=== PATIENT | male | born 1960 | race African-American/Black ===

== ENCOUNTER 2022-01-09 09:15 | Inpatient (IN) | payer OTHER ==
[2022-01-14] MEDS ORDERED: cefOXitin 2 GM VIAL ONE (11:37)
[2022-01-14] MEDS ORDERED: Sodium Chloride 0.9% 100 ML ONE (11:37)
[2022-01-14] MEDS ORDERED: fentaNYL Citrate/PF 100 MCG/2 ML SYRINGE ONE (13:39)
[2022-01-14] MEDS ORDERED: SUGAMMADEX SODIUM 200 MG/2 ML VIAL ONE (13:39)
[2022-01-14] MEDS ORDERED: Dexamethasone 20 MG/5 ML VIAL ONE (13:53)
[2022-01-14] MEDS ORDERED: Glycopyrrolate 0.2 MG/ML 5 ML SYRINGE ONE (13:53)
[2022-01-14] MEDS ORDERED: Rocuronium Bromide 10 MG/ML (10ML VIAL) ONE (13:53)
[2022-01-14] MEDS ORDERED: PROPOFOL 200 MG/20 ML VIAL ONE (13:53)
[2022-01-14] MEDS ORDERED: ePHEDrine 50 MG/ML VIAL ONE (13:53)
[2022-01-14] MEDS ORDERED: Phenylephrine 10 MG/ML VIAL ONE (13:53)
[2022-01-14] MEDS ORDERED: Lidocaine 1% PF 5 ML VIAL ONE (13:53)
[2022-01-14] MEDS ORDERED: Ondansetron PF 4 MG/2 ML Vial ONE (13:53)
[2022-01-14] MEDS ORDERED: Ondansetron PF 4 MG/2 ML Vial IVP PRN (15:44)
[2022-01-14] MEDS ORDERED: HumaLOG 300 UNITS/3 ML VIAL SC PRN (15:44)
[2022-01-14] MEDS ORDERED: Promethazine HCl 25 MG/ML VIAL IM PRN ×2 (15:44→15:58)
[2022-01-14] MEDS ORDERED: Promethazine HCl 25 MG/ML VIAL IVPB PRN (15:58)
[2022-01-14] MEDS ORDERED: HYDROmorphone 2 MG/ML VIAL SLOW IVP PRN (15:58)
[2022-01-14] MEDS ORDERED: Ondansetron HCl/PF 4 MG/2 ML Vial IVP PRN (15:58)
[2022-01-14] MEDS ORDERED: Ketorolac Tromethamine 30 MG/ML VIAL IVP PRN (15:58)
[2022-01-14] MEDS ORDERED: Naloxone HCl 0.4 mg/ml Vial IV PRN (15:59)
[2022-01-14] MEDS ORDERED: Fentanyl 100 MCG/2 ML VIAL ONE ×2 (15:59→16:39)
[2022-01-14] MEDS ORDERED: diphenhydrAMINE 50 MG/ML VIAL IVP PRN (15:59)
[2022-01-14] MEDS ORDERED: diphenhydrAMINE 25 MG CAP PO PRN (15:59)
[2022-01-14] MEDS ORDERED: diphenhydrAMINE 50 MG/ML VIAL IM PRN (15:59)
[2022-01-14] MEDS ORDERED: Zolpidem Tartrate 5 MG TAB PO PRN (15:59)
[2022-01-14] MEDS ORDERED: Morphine CADD 1 MG/ML CADD IVPB PRN (15:59)
[2022-01-14] MEDS ORDERED: Communication Order-Pharmacy FS PRN (16:00)
[2022-01-14] MEDS ORDERED: Ondansetron HCl/PF 4 MG/2 ML Vial IVP SCH (16:15)
[2022-01-14] MEDS: Sodium Chloride 0.9% 1,000 ML IV SCH (19:00)
[2022-01-14] MEDS ORDERED: cefOXitin 2 GM in Sodium Chloride 0.9% 100 ML IVPB SCH (19:00)
[2022-01-14] MEDS: Famotidine/PF 20 mg/2ml Vial SLOW IVP SCH (21:25)
[2022-01-14] MEDS: Famotidine 20 MG TAB PO SCH (21:30)
[2022-01-14] MEDS: cefOXitin 2 GM in Sodium Chloride 0.9% 100 ML IVPB SCH (21:42)
[2022-01-15] MEDS: Sodium Chloride 0.9% 1,000 ML IV SCH ×4 (02:06→20:13)
[2022-01-15] MEDS: cefOXitin 2 GM in Sodium Chloride 0.9% 100 ML IVPB SCH (05:04)
[2022-01-15 06:00] LABS: Anion Gap 12 mmol/L (10-20); BUN (Urea Nitrogen) 10 mg/dL (8.4-25.7); Calc. Creatinine Clearance 166 mL/min (70-130); Calcium 8.6 mg/dL (7.8-10.44); Carbon Dioxide 24 mmol/L (23-31); Chloride 105 mmol/L (98-107); Estimated GFR 104; Glucose 125 mg/dL (80-115); Potassium 4.2 mmol/L (3.5-5.1); Sodium 137 mmol/L (136-145)
[2022-01-15 06:24] LABS: Band 25 % (5-11); Hemoglobin 13.9 g/dL (14.0-18.0); Lymphocytes 7 % (21-51); MDiff Complete? YES; Mean Corpuscular HGB CONC 30.8 g/dL (32.0-36.0); Mean Corpuscular Hemoglobin 28.2 pg (27.0-31.0); Mean Corpuscular Volume 91.8 fL (78.0-98.0); Mean Platelet Volume 8.4 fL (7.4-10.4); Monocytes 7 % (0-10); Neutrophil 61 % (42-75); Platelet Count 302 thou/uL (130-400); Platelet Morphology Comment Appears Adequate; RBC Morphology Normal; Red Blood Cell (RBC) Count 4.93 mill/uL (4.70-6.10); White Blood Cell (WBC) Count 21.3 thou/uL (4.8-10.8)
[2022-01-15] MEDS: Famotidine 20 MG TAB PO SCH ×2 (08:24→20:13)
[2022-01-15] MEDS: Enoxaparin Sodium 40 MG/0.4 ML SYRINGE SC SCH (08:24)
[2022-01-15] MEDS: Famotidine/PF 20 mg/2ml Vial SLOW IVP SCH ×2 (08:24→20:13)
[2022-01-15] MEDS: hydrALAZINE 20 MG/ML VIAL SLOW IVP PRN (20:19)
[2022-01-16] MEDS: Enoxaparin Sodium 40 MG/0.4 ML SYRINGE SC SCH (08:52)
[2022-01-16] MEDS: Famotidine 20 MG TAB PO SCH ×2 (08:54→20:33)
[2022-01-16] MEDS: Famotidine/PF 20 mg/2ml Vial SLOW IVP SCH ×2 (08:57→19:33)
[2022-01-16] MEDS: Sodium Chloride 0.9% 1,000 ML IV SCH (08:58)
[2022-01-16] MEDS ORDERED: Fentanyl 100 MCG/2 ML VIAL SLOW IVP PRN (11:21)
[2022-01-16] MEDS: hydrALAZINE 20 MG/ML VIAL SLOW IVP PRN ×2 (12:06→16:00)
[2022-01-17] MEDS: HYDROcodone/Acetaminophen 7.5/325 mg Tablet PO PRN ×2 (00:38→17:30)
[2022-01-17] MEDS: Enoxaparin Sodium 40 MG/0.4 ML SYRINGE SC SCH (08:27)
[2022-01-17] MEDS: Famotidine/PF 20 mg/2ml Vial SLOW IVP SCH ×2 (08:58→21:04)
[2022-01-17] MEDS: D5 1/2 NS w/20 mEq KCL 1,000 ML IV SCH ×2 (09:04→23:27)
[2022-01-17] MEDS: Famotidine 20 MG TAB PO SCH ×2 (09:18→21:04)
[2022-01-17 15:50] VITALS: BMI 35.5
[2022-01-17] MEDS: Ondansetron PF 4 MG/2 ML Vial IVP PRN (17:32)
[2022-01-17] MEDS: Promethazine HCl 25 MG/ML VIAL IM PRN (21:04)
[2022-01-18] MEDS: Famotidine/PF 20 mg/2ml Vial SLOW IVP SCH ×2 (10:26→20:49)
[2022-01-18] MEDS: Enoxaparin Sodium 40 MG/0.4 ML SYRINGE SC SCH (10:26)
[2022-01-18] MEDS: Famotidine 20 MG TAB PO SCH ×2 (10:27→20:43)
[2022-01-19] MEDS: D5 1/2 NS w/20 mEq KCL 1,000 ML IV SCH ×4 (00:36→20:34)
[2022-01-19] MEDS: Ondansetron PF 4 MG/2 ML Vial IVP PRN ×2 (05:10→20:35)
[2022-01-19 06:10] LABS: ALT (SGPT) 15 U/L (8-55); AST (SGOT) 13 U/L (5-34); Albumin 3.7 g/dL (3.4-4.8); Alkaline Phosphatase 63 U/L (40-110); Anion Gap 19 mmol/L (10-20); BUN (Urea Nitrogen) 24 mg/dL (8.4-25.7); Bilirubin, Total 1.2 mg/dL (0.2-1.2); Calc. Creatinine Clearance 128 mL/min (70-130); Calcium 9.4 mg/dL (7.8-10.44); Carbon Dioxide 29 mmol/L (23-31); Chloride 96 mmol/L (98-107); Estimated GFR 93; Globulin 3.7 g/dL (2.4-3.5); Glucose 159 mg/dL (80-115); Phosphorus 3.7 mg/dL (2.3-4.7); Potassium 3.5 mmol/L (3.5-5.1); Protein, Total 7.4 g/dL (5.8-8.1); Sodium 140 mmol/L (136-145)
[2022-01-19 06:15] LABS: Band 11 % (5-11); Hemoglobin 15.1 g/dL (14.0-18.0); Lymphocytes 9 % (21-51); MDiff Complete? YES; Mean Corpuscular HGB CONC 32.8 g/dL (32.0-36.0); Mean Corpuscular Hemoglobin 29.8 pg (27.0-31.0); Mean Corpuscular Volume 90.7 fL (78.0-98.0); Mean Platelet Volume 8.2 fL (7.4-10.4); Monocytes 25 % (0-10); Neutrophil 55 % (42-75); Platelet Count 366 thou/uL (130-400); Platelet Morphology Comment Appears Adequate; RBC Morphology Normal; Red Blood Cell (RBC) Count 5.05 mill/uL (4.70-6.10); White Blood Cell (WBC) Count 7.5 thou/uL (4.8-10.8)
[2022-01-19] MEDS: Enoxaparin Sodium 40 MG/0.4 ML SYRINGE SC SCH (08:20)
[2022-01-19] MEDS: Famotidine/PF 20 mg/2ml Vial SLOW IVP SCH ×2 (08:20→20:34)
[2022-01-19] MEDS: Famotidine 20 MG TAB PO SCH ×2 (08:21→21:00)
[2022-01-19] MEDS: Promethazine HCl 25 MG/ML VIAL IM PRN (22:35)
[2022-01-20] MEDS: D5 1/2 NS w/20 mEq KCL 1,000 ML IV SCH ×3 (05:34→18:02)
[2022-01-20] MEDS: Enoxaparin Sodium 40 MG/0.4 ML SYRINGE SC SCH (08:19)
[2022-01-20] MEDS: Famotidine 20 MG TAB PO SCH ×2 (08:19→19:40)
[2022-01-20] MEDS: HYDROcodone/Acetaminophen 7.5/325 mg Tablet PO PRN ×2 (08:25→16:20)
[2022-01-20] MEDS: Famotidine/PF 20 mg/2ml Vial SLOW IVP SCH ×2 (08:27→20:24)
[2022-01-21 06:00] LABS: Band 2 % (5-11); Eosinophils 12 % (0-10); Hemoglobin 12.5 g/dL (14.0-18.0); Hypochromia SLIGHT = 6-15 cells (100X) (0-5/hpf); Lymphocytes 29 % (21-51); MDiff Complete? YES; Mean Corpuscular HGB CONC 30.7 g/dL (32.0-36.0); Mean Corpuscular Volume 94.6 fL (78.0-98.0); Mean Platelet Volume 7.7 fL (7.4-10.4); Monocytes 20 % (0-10); Neutrophil 37 % (42-75); Platelet Count 362 thou/uL (130-400); Platelet Morphology Comment Appears Adequate; Polychromasia SLIGHT = 2-3 cells (100X) (0-2/hpf); White Blood Cell (WBC) Count 10.8 thou/uL (4.8-10.8)
[2022-01-21 07:45] LABS: Anion Gap 16 mmol/L (10-20); BUN (Urea Nitrogen) 14 mg/dL (8.4-25.7); Calc. Creatinine Clearance 155 mL/min (70-130); Calcium 8.8 mg/dL (7.8-10.44); Carbon Dioxide 26 mmol/L (23-31); Chloride 103 mmol/L (98-107); Estimated GFR 102; Glucose 122 mg/dL (80-115); Potassium 3.7 mmol/L (3.5-5.1); Sodium 141 mmol/L (136-145)
[2022-01-21] MEDS: Enoxaparin Sodium 40 MG/0.4 ML SYRINGE SC SCH (08:21)
[2022-01-21] MEDS: Famotidine 20 MG TAB PO SCH ×2 (08:21→20:43)
[2022-01-21] MEDS: D5 1/2 NS w/20 mEq KCL 1,000 ML IV SCH (08:22)
[2022-01-21] MEDS: Famotidine/PF 20 mg/2ml Vial SLOW IVP SCH ×2 (08:22→20:43)
[2022-01-22] MEDS: HYDROcodone/Acetaminophen 7.5/325 mg Tablet PO PRN (02:05)
[2022-01-22] MEDS: Promethazine HCl 25 MG/ML VIAL IM PRN (02:05)
[2022-01-22] MEDS: Famotidine 20 MG TAB PO SCH ×2 (08:56→21:34)
[2022-01-22] MEDS: Enoxaparin Sodium 40 MG/0.4 ML SYRINGE SC SCH (08:57)
[2022-01-22] MEDS: Famotidine/PF 20 mg/2ml Vial SLOW IVP SCH ×2 (10:09→21:34)
[2022-01-23] MEDS: hydrALAZINE 20 MG/ML VIAL SLOW IVP PRN (00:27)
[2022-01-23 06:35] VITALS: TEMP 98.3
[2022-01-23 08:20] VITALS: BP 158/80
[2022-01-23] MEDS: Enoxaparin Sodium 40 MG/0.4 ML SYRINGE SC SCH (08:32)
[2022-01-23] MEDS: Famotidine/PF 20 mg/2ml Vial SLOW IVP SCH (08:32)
[2022-01-23] MEDS: Famotidine 20 MG TAB PO SCH (08:32)
== END 2022-01-23 11:05 | disposition home or self-care (01) | DRG 330 ==
LOC: SURG A 01-14 08:16
PROVIDERS: ADMIT Surgery; ATTEND Surgery
PROC: 0DTG0ZZ Resection of Left Large Intestine, Open Approach (ICD-10-PCS; principal; 2022-01-15)
DX: C18.7 Malignant neoplasm of sigmoid colon (principal); K56.7 Ileus, unspecified; C77.2 Secondary and unspecified malignant neoplasm of intra-abdominal lymph nodes; Z20.822 Contact with and (suspected) exposure to COVID-19; E11.9 Type 2 diabetes mellitus without complications; I10 Essential (primary) hypertension; Z79.899 Other long term (current) drug therapy; Z79.84 Long term (current) use of oral hypoglycemic drugs; Z82.49 Family history of ischemic heart disease and other diseases of the circulatory system; Z83.3 Family history of diabetes mellitus; Z87.891 Personal history of nicotine dependence
CPT/HCPCS: 36415; 36416; 80048; 80053; 83735; 84100; 84134; 85025; 88305; 88309; A4649; J0360; J0694; J1100; J1650; J1815; J2370; J2405; J2550; J2704; J3010; J3480; J3490; J7050; S0028

== ENCOUNTER 2022-01-09 09:38 | Outpatient (CLI) | payer OTHER ==
[2022-01-09 11:40] LABS: #Basophils 0.1 10x3/uL (0.0-0.2); #Eosinphils 0.8 10x3/uL (0.0-0.5); #Monocytes 1.1 10x3/uL (0.0-1.1); #Neutrophils 5.5 10x3/uL (1.5-8.4); %Basophils 1.1 % (0.0-2.0); %Eosinophils 7.8 % (0.0-6.0); %Lymphocytes 28.3 % (18.0-47.0); %Monocytes 10.5 % (0.0-10.0); Hemoglobin 14.7 g/dL (13.5-17.5); Mean Corpuscular HGB CONC 31.8 g/dL (32.0-36.0); Mean Corpuscular Hemoglobin 27.5 pg (27.0-33.0); Mean Corpuscular Volume 86.5 fl (81.2-95.1); Mean Platelet Volume 10.5 fl (7.4-10.4); Platelet Count 359 10x3/uL (150-450); RBC Distribution Width 14.3 % (11.5-14.5); Red Blood Cell (RBC) Count 5.34 10x6/uL (4.32-5.72); White Blood Cell (WBC) Count 10.5 10x3/uL (3.5-10.5)
[2022-01-09 12:03] LABS: Anion Gap 16 mmol/L (10-20); BUN (Urea Nitrogen) 11 mg/dL (8.4-25.7); Calc. Creatinine Clearance 0 mL/min (70-130); Calcium 9.6 mg/dL (7.8-10.44); Carbon Dioxide 24 mmol/L (23-31); Chloride 107 mmol/L (98-107); Estimated GFR 100; Glucose 122 mg/dL (80-115); Potassium 4.6 mmol/L (3.5-5.1); Sodium 142 mmol/L (136-145)
[2022-01-09 14:07] LABS: Hemoglobin A1c 6.2 % (4.0-6.0)
== END 2022-01-09 09:39 | disposition home or self-care (01) ==
LOC: LABBT 09:38
PROVIDERS: ATTEND Surgery
DX: Z01.818 Encounter for other preprocedural examination (principal); C18.7 Malignant neoplasm of sigmoid colon; Z20.822 Contact with and (suspected) exposure to COVID-19
CPT/HCPCS: 80048; 83036; 85025; 87811; 93005; 93010

== ENCOUNTER 2022-07-24 08:48 | Outpatient (CLI) | payer OTHER ==
[2022-07-24 10:38] LABS: #Basophils 0.1 10x3/uL (0.0-0.2); #Eosinphils 0.2 10x3/uL (0.0-0.5); #Monocytes 0.9 10x3/uL (0.0-1.1); #Neutrophils 4.9 10x3/uL (1.5-8.4); %Basophils 0.8 % (0.0-2.0); %Eosinophils 2.4 % (0.0-6.0); %Monocytes 9.5 % (0.0-10.0); %Neutrophils 54.1 % (40.0-75.0); Hemoglobin 15.2 g/dL (13.5-17.5); Mean Corpuscular HGB CONC 32.2 g/dL (32.0-36.0); Mean Corpuscular Hemoglobin 28.4 pg (27.0-33.0); Mean Corpuscular Volume 88.2 fl (81.2-95.1); Mean Platelet Volume 10.9 fl (7.4-10.4); Platelet Count 344 10x3/uL (150-450); RBC Distribution Width 14.3 % (11.5-14.5); Red Blood Cell (RBC) Count 5.35 10x6/uL (4.32-5.72)
[2022-07-24 11:29] LABS: Anion Gap 16 mmol/L (10-20); BUN (Urea Nitrogen) 11 mg/dL (8.4-25.7); Calc. Creatinine Clearance 0 mL/min (70-130); Calcium 9.4 mg/dL (7.8-10.44); Carbon Dioxide 22 mmol/L (23-31); Chloride 107 mmol/L (98-107); Estimated GFR 100; Glucose 100 mg/dL (80-115); Potassium 4.6 mmol/L (3.5-5.1); Sodium 140 mmol/L (136-145)
== END 2022-07-24 08:49 | disposition home or self-care (01) ==
LOC: LABBT 08:48
PROVIDERS: ATTEND Surgery
DX: Z01.812 Encounter for preprocedural laboratory examination (principal); C18.9 Malignant neoplasm of colon, unspecified
CPT/HCPCS: 80048; 85025

== ENCOUNTER 2022-07-28 09:49 | Day surgery (SDC) | payer OTHER ==
[2022-07-25 09:19] VITALS: BMI 35.4
[2022-07-28] MEDS ORDERED: Lidocaine 2% PF 5 ML VIAL ONE (12:31)
[2022-07-28] MEDS ORDERED: Bupivacaine/Epinephrine 0.25% 30 ML VIAL ONE (12:31)
[2022-07-28] MEDS ORDERED: Midazolam HCl 2 mg/2 ml Vial ONE (12:34)
[2022-07-28] MEDS ORDERED: fentaNYL PF 100 MCG/2 ML SYRINGE ONE (12:35)
[2022-07-28] MEDS ORDERED: Famotidine/PF 20 mg/2ml Vial ONE (12:35)
[2022-07-28] MEDS ORDERED: PROPOFOL 40 ML ONE (12:35)
[2022-07-28] MEDS ORDERED: Propofol 500 MG/50 ML VIAL ONE (12:35)
[2022-07-28] MEDS ORDERED: CEFAZOLIN 2 GM VIAL ONE (12:42)
[2022-07-28] MEDS ORDERED: Sodium Chloride 0.9% 100 ML ONE (12:42)
[2022-07-28] MEDS ORDERED: Ondansetron PF 4 MG/2 ML Vial ONE (12:42)
[2022-07-28] MEDS ORDERED: Lidocaine 1% PF 5 ML VIAL ONE (12:50)
[2022-07-28] MEDS ORDERED: PROPOFOL 200 MG/20 ML VIAL ONE (12:50)
== END 2022-07-28 14:42 | disposition home or self-care (01) ==
LOC: SDC 09:49
PROVIDERS: ATTEND Surgery
PROC: 02HV33Z Insertion of Infusion Device into Superior Vena Cava, Percutaneous Approach (ICD-10-PCS; principal; 2022-07-28)
PROC: 0JH60WZ Insertion of Totally Implantable Vascular Access Device into Chest Subcutaneous Tissue and Fascia, Open Approach (ICD-10-PCS; principal; 2022-07-28)
DX: C18.7 Malignant neoplasm of sigmoid colon (principal); E11.9 Type 2 diabetes mellitus without complications; Z79.84 Long term (current) use of oral hypoglycemic drugs; Z79.899 Other long term (current) drug therapy; Z90.49 Acquired absence of other specified parts of digestive tract
CPT/HCPCS: 71045; C1788; J1642; J2001; J2250; J2405; J2704; J3490; S0028

== ENCOUNTER 2022-08-18 07:54 | Outpatient (CLI) | payer OTHER ==
[2022-08-18] MEDS ORDERED: Iopamidol 370 76% 100 ML VIAL ONE (10:22)
== END 2022-08-18 07:55 | disposition home or self-care (01) ==
LOC: CT 07:54
PROVIDERS: ATTEND Internal Medicine Hematology & Oncology
DX: C18.7 Malignant neoplasm of sigmoid colon (principal); R91.1 Solitary pulmonary nodule; N20.0 Calculus of kidney; N21.0 Calculus in bladder; Z98.890 Other specified postprocedural states
CPT/HCPCS: 71260; 74177; Q9967

== ENCOUNTER 2023-02-13 09:52 | Outpatient (CLI) | payer OTHER ==
[2023-02-13] MEDS ORDERED: Iopamidol-370 76% 500 ML MDV (1 ML CHARGE) ONE (14:09)
== END 2023-02-13 09:53 | disposition home or self-care (01) ==
LOC: BICCT 09:52
PROVIDERS: ATTEND Internal Medicine Hematology & Oncology
DX: C18.7 Malignant neoplasm of sigmoid colon (principal)
CPT/HCPCS: 71260; 74177; 82565; Q9967

== ENCOUNTER 2024-01-20 09:05 | Outpatient (CLI) | payer OTHER | END 2024-01-20 09:06 | disposition home or self-care (01) | LOC: BICCT 09:05 | PROVIDERS: ATTEND Internal Medicine Hematology & Oncology | DX: C18.9 Malignant neoplasm of colon, unspecified (principal) | CPT/HCPCS: 71260; 74177; 82565 ==

== ENCOUNTER 2024-08-03 08:35 | Outpatient (CLI) | payer OTHER ==
[2024-08-03] MEDS ORDERED: Iopamidol 370 76% 100 ML VIAL ONE (10:52)
== END 2024-08-03 08:36 | disposition home or self-care (01) ==
LOC: BICCT 08:35
PROVIDERS: ATTEND Internal Medicine Hematology & Oncology
DX: C18.7 Malignant neoplasm of sigmoid colon (principal); N28.1 Cyst of kidney, acquired; N20.2 Calculus of kidney with calculus of ureter
CPT/HCPCS: 36415; 71260; 74177; 82565

== ENCOUNTER 2025-03-16 05:57 | Emergency (ER) | payer OTHER ==
[2025-03-16] MEDS ORDERED: Pantoprazole 40 MG VIAL ONE (06:42)
[2025-03-16 07:01] LABS: #Basophils 0.12 10x3/uL (0.0-0.2); #Eosinophils 0.09 10x3/uL (0.0-0.7); #Monocytes 1.31 10x3/uL (0.11-0.59); #Neutrophils 10.13 10x3/uL (1.40-6.50); %Basophils 0.8 % (0.0-1.0); %Eosinophils 0.6 % (0.0-10.0); %Lymphocytes 19.7 % (21.0-51.0); %Monocytes 8.9 % (0.0-10.0); %Neutrophils 68.8 % (42.0-75.0); Hematocrit 39.7 % (42.0-52.0); Hemoglobin 12.4 g/dL (14.0-18.0); Mean Corpuscular Hemoglobin 27.6 pg (27.0-31.0); Mean Corpuscular Volume 88.4 fL (78.0-98.0); Platelet Count 290 10x3/uL (130-400); Red Blood Cell (RBC) Count 4.49 mill/uL (4.70-6.10); White Blood Cell (WBC) Count 14.73 10x3/uL (4.8-10.8)
[2025-03-16 07:15] LABS: INR-International Normal Ratio 1.2; Prothrombin Time 15.7 sec (12.0-14.7)
[2025-03-16 07:16] LABS: PTT 33.3 sec (22.9-36.1)
[2025-03-16 07:29] LABS: ALT (SGPT) 12 U/L (Less than 45); AST (SGOT) 20 U/L (11-34); Albumin 3.6 g/dL (3.1-4.5); Alkaline Phosphatase 62 U/L (40-110); Anion Gap 12 mmol/L (10-20); BUN (Urea Nitrogen) 34 mg/dL (8.4-25.7); Bilirubin, Total 0.3 mg/dL (0.3-1.2); Calc. Creatinine Clearance 0 mL/min (70-130); Calcium 8.8 mg/dL (7.8-10.44); Carbon Dioxide 21 mmol/L (23-31); Chloride 111 mmol/L (98-107); Globulin 2.9 g/dL (2.4-3.5); Glucose 149 mg/dL (80-115); Lipase 12 U/L (8-78); Magnesium 1.8 mg/dL (1.6-2.6); Potassium 4.3 mmol/L (3.5-5.1); Sodium 140 mmol/L (136-145)
== END 2025-03-16 10:20 | disposition home or self-care (01) ==
LOC: ERS 05:57
DX: K52.9 Noninfective gastroenteritis and colitis, unspecified (principal); R11.2 Nausea with vomiting, unspecified; I10 Essential (primary) hypertension; E11.9 Type 2 diabetes mellitus without complications; Z87.891 Personal history of nicotine dependence; Z79.84 Long term (current) use of oral hypoglycemic drugs
CPT/HCPCS: 74174; 80053; 83605; 83690; 83735; 84484; 85025; 85610; 85730; 86850; 86900; 86901; 93005; 96361; 96374; J2470